=== PATIENT | female | born 1970 | race Caucasian/White ===

== ENCOUNTER 2022-11-26 18:17 | Inpatient (IN) | payer OTHER, MEDICAID ==
[~2022-11-26] VITALS: Ht 154.9 cm; Wt 80.1 kg
[2022-11-26 18:49] VITALS: BP_SYST 150
--- NOTE | 2022-11-26 20:31 | NUR ---
Patient to ER bed 5 to gown for evaluation. Side rails up. Report given to AMOS CHÁVEZ(REG).
--- NOTE | 2022-11-26 20:40 | NUR ---
ER Dr. BUSTOS at bedside examining patient.
--- NOTE | 2022-11-26 21:10 | NUR ---
PT IS AA&OX4. AFEBRILE. NAD. DENIES PAIN. NOTED R FOOT SWELLING AND R LOWER LEG EDEMA. ELEVATED MOLLY. R FOOT PLANTAR WOUND W/ NO BLEEDING NOTED. AMBULATORY. SAFE & HAZARD FREE ENVIRONMENT PROVIDED.
[2022-11-26 21:19] LABS: BASOPHILS # (AUTO) 0.1 K/uL (0.0-0.2); BASOPHILS % (AUTO) 0.6 % (0.0-2.0); EOSINOPHILS # (AUTO) 0.3 K/uL (0.0-0.4); EOSINOPHILS % (AUTO) 2.5 % (0.0-4.0); HEMATOCRIT 29.9 % (36-48); HEMOGLOBIN 9.7 g/dL (12.0-16.0); LYMPHOCYTES # (AUTO) 1.1 K/uL (1.0-5.5); LYMPHOCYTES % (AUTO) 9.7 % (20.5-51.5); MEAN CORPUSCULAR HEMOGLOBIN 28 pg (27-31); MEAN CORPUSCULAR HGB CONC 33 % (32-36); MEAN CORPUSCULAR VOLUME 87 fL (79.0-98.0); MONOCYTES # (AUTO) 0.6 K/uL (0.0-1.0); MONOCYTES % (AUTO) 5.3 % (1.7-9.3); NEUTROPHILS # (AUTO) 9.5 K/uL (1.8-7.7); NEUTROPHILS % (AUTO) 81.9 % (40.0-70.0); PLATELET COUNT (AUTO) 281 K/uL (130-430); RED BLOOD CELL COUNT(AUTO) 3.43 MIL/uL (4.2-6.2); RED CELL DISTRIBUTION WIDTH 13.9 % (9.0-15.0); WHITE BLOOD COUNT (AUTO) 11.6 K/uL (4.8-10.8)
[2022-11-26 21:30] LABS: CALCIUM 9.1 mg/dL (8.4-11.0); CREATININE 6.52 mg/dL (0.55-1.30)
[2022-11-26 21:34] LABS: ALBUMIN 2.9 g/dL (3.4-4.8); TOTAL BILIRUBIN 0.4 mg/dL (0.0-1.0)
[2022-11-26 21:58] LABS: ERYTHROCYTE SEDIMENTATION RATE 43 MM/HR (0-20)
[2022-11-26] MEDS ORDERED: VANCOMYCIN HCL 1,000 MG in NS 250 ML IV ONE (22:15)
[2022-11-26] MEDS ORDERED: PIPERACILLIN/TAZO 3.375 GM in NS 50 ML IV ONE (22:15)
[2022-11-26] MEDS ORDERED: PIPERACILLIN/TAZOBACTAM 3.375 GM/VIAL (ZOSYN) IV ONE (22:21)
[2022-11-26] MEDS ORDERED: VANCOMYCIN HCL 1000 MG/VIAL IV ONE (22:21)
--- NOTE | 2022-11-26 22:22 | NUR ---
Admit bed requested Patient will be admitted to care of [facility] Admitted to TELEMETY unit. Diagnosis : R FOOT CELLULITIS Inpatient :Yes Observation : No Orientation concerns or request close to nursing station : No Covid Status : PND On vent or bipap :NO Isolation requirements :NO Needs a sitter :NO From Home :Yes Requires Dialysis :No Med Rec Completed : PND
--- NOTE | 2022-11-26 23:02 | NUR ---
# 20 gauge angiocath placed to RAC. Use of asceptic technique. Opsite placed over site. Blood return noted. Flushed with 10 cc of normal saline. No evidence of infiltration noted. Patient tolerated well.
--- NOTE | 2022-11-26 23:06 | NUR ---
COVID SWAB BY KAREN YEPEZ & SENT TO LAB.
[2022-11-26] MEDS ORDERED: BUME1TAB8 PO (23:08)
[2022-11-26] MEDS ORDERED: AMLO2.5T2 PO (23:08)
[2022-11-26] MEDS ORDERED: GLIP2.5T3 PO (23:08)
--- NOTE | 2022-11-26 23:08 | NUR ---
Medication reconciliation completed with information provided by PATIENT. Any prior medication reconciliation on file was reviewed and corrected.
--- NOTE | 2022-11-27 00:12 | NUR ---
PT REQUESTED FOR SOMETHING TO CALM HER DOWN BEFORE GETTING MOVED TO THE TELE FLOOR. PT REQUESTED FOR XANAX 0.5MG SHE'S TAKEN IT BEFORE, PER PT. DR. OBRIEN MADE AWARE W/ NEW ORDERS NOTED & CARRIED OUT.
[2022-11-27] MEDS ORDERED: ALPRAZolam 0.25 MG TABLET PO ONE (00:15)
--- NOTE | 2022-11-27 00:33 | NUR ---
Patient will be admitted to care of [facility]. Admitted to TELE unit. Will go to room 128A. Belongings list completed. Complete and up to date summary report printed. SBAR report to be given at bedside TO KYLER DIAMOND with opportunity for questions.
--- NOTE | 2022-11-27 00:40 | NUR ---
ADMISSION NOTE Received patient from ER via gurney. Patient admitted with diagnosis of RIGHT FOOT CELLULITIS. Patient is awake, alert, oriented X 4. Patient oriented to hospital room, call light, toileting, pain management and safety-teach back done. Patient informed that their room number is 128B. Personal belongings checked and Belongings List documented. Call light within reach.
--- NOTE | 2022-11-27 05:03 | NUR ---
CONSULTATION PAGED/CALLED Reason for Consultation: ESRD Person Who was Notified:ANDREA Consulting Physician: NHI Manager Interventional Specialty: Ordering Physician: ADRIANNA Addendum: 11/27/22 at 0504 by Clair Lopez CNA DOCTOR HANSEN IS BUSINESS SYSTEMS ADMINISTRATOR
--- NOTE | 2022-11-27 07:29 | NUR ---
CLOSING NOTES Patient resting in bed - no s/s pain or distress noted. Respirations even and unlabored - head of bed elevated. IV site patent no s/s redness, infection, or infiltration. Bed locked and in lowest position. Call light within reach bed alarm on. at bedside.
[2022-11-27 08:00] VITALS: BP_SYST 167
[2022-11-27] MEDS ORDERED: ZOLPIDEM TARTRATE 5 MG TABLET PO PRN (08:00)
[2022-11-27] MEDS ORDERED: POTASSIUM CHLORIDE 20 MEQ TAB.PRT.SR PO PRN (08:00)
[2022-11-27] MEDS ORDERED: ONDANSETRON HCL 4 MG/2 ML VIAL IVP PRN (08:00)
[2022-11-27] MEDS ORDERED: MUPIROCIN 2% TOPICAL OINTMENT 22 GM NS PRN (08:00)
[2022-11-27] MEDS ORDERED: DOCUSATE SODIUM 100 MG CAPSULE PO PRN (08:00)
[2022-11-27] MEDS ORDERED: MORPHINE 2 MG/ML INJ. SYRINGE IVP PRN ×2 (08:00)
[2022-11-27] MEDS ORDERED: LORazepam 2 MG/ML VIAL IVP PRN (08:00)
[2022-11-27] MEDS ORDERED: ACETAMINOPHEN 325 MG TABLET PO PRN ×2 (08:00→08:15)
[2022-11-27] MEDS ORDERED: NALOXONE HCL 0.4 MG/ML AMP (NARCAN) IVP PRN ×2 (08:00)
[2022-11-27] MEDS ORDERED: MAGNESIUM SULFATE 50 ML IV PRN (08:00)
--- NOTE | 2022-11-27 08:00 | NUR ---
Start of shift Pt sitting up in bed eating her breakfast. IV in RAC intact and patent. LAV shunt intact. No SOB/resp distress or severe right foot pain/discomfort noted. Tele unit attached and intact at this time. Bed in low position and side rails raised. Pt ambulates to restroom with standby assist. Call light within reach.
--- NOTE | 2022-11-27 08:08 | NUR ---
CONSULTATION: REASON FOR CONSULT: R FOOT CELLULITIS CONSULTING PHYSICIAN: Ascencion JOHNSON ORDERED BY: Isaak RODAS SPOKE WITH MIRIAM [phone]
[2022-11-27] MEDS: amLODIPine BESYLATE 5 MG TABLET PO SCH (08:48)
[2022-11-27] MEDS: HEPARIN SODIUM,PORCINE 5,000 UNITS/ML VIAL SUBCUT SCH ×2 (08:54→21:24)
[2022-11-27] MEDS: BUMETANIDE 1 MG TABLET PO SCH ×2 (09:00→12:35)
[2022-11-27] MEDS ORDERED: cefTRIAXone 1 GM in D5W 50 ML IV SCH (09:00)
[2022-11-27] MEDS: cefTRIAXone 1 GM in D5W 50 ML IV SCH (09:46)
[2022-11-27] MEDS: INSULIN REGULAR, HUMAN 100 UNITS/ML, 3 ML VIAL (humuLIN R) SUBCUT PRN ×2 (11:31→21:27)
[2022-11-27 12:00] VITALS: BP_SYST 178
[2022-11-27] MEDS: metroNIDAZOLE 250 mg/NS 50 ML IV SCH ×2 (13:41→21:25)
--- NOTE | 2022-11-27 15:25 | NUR ---
Note Pt has been ambulating to restroom with standby assist and did self hygiene care. Pt's at bedside at this time. Dr Bowman (nephro) at bedside assessing pt and answering questions/concerns at this time. Call light within reach. No needs noted.
[2022-11-27 16:00] VITALS: BP_SYST 162
--- NOTE | 2022-11-27 18:50 | NUR ---
END OF SHIFT Pt having Hemodialysis at this time - started around 1600. Pt's at bedside at this time as well. No needs noted. Call light within reach. Bed in low position and side rails raised.
[2022-11-27 20:00] VITALS: BP_SYST 150
[2022-11-27] MEDS ORDERED: MELATONIN 3 MG TABLET PO PRN (21:00)
[2022-11-28] VITALS: BP_SYST 150
[2022-11-28 01:24] VITALS: BP_SYST 146
[2022-11-28 04:00] VITALS: BP_SYST 144
[2022-11-28 06:20] LABS: BASOPHILS # (AUTO) 0.1 K/uL (0.0-0.2); BASOPHILS % (AUTO) 0.7 % (0.0-2.0); EOSINOPHILS # (AUTO) 0.2 K/uL (0.0-0.4); EOSINOPHILS % (AUTO) 3.1 % (0.0-4.0); HEMATOCRIT 30.4 % (36-48); HEMOGLOBIN 9.9 g/dL (12.0-16.0); LYMPHOCYTES # (AUTO) 1.2 K/uL (1.0-5.5); LYMPHOCYTES % (AUTO) 16.5 % (20.5-51.5); MEAN CORPUSCULAR HEMOGLOBIN 28 pg (27-31); MEAN CORPUSCULAR HGB CONC 33 % (32-36); MEAN CORPUSCULAR VOLUME 88 fL (79.0-98.0); MONOCYTES # (AUTO) 0.6 K/uL (0.0-1.0); MONOCYTES % (AUTO) 7.7 % (1.7-9.3); NEUTROPHILS # (AUTO) 5.4 K/uL (1.8-7.7); PLATELET COUNT (AUTO) 259 K/uL (130-430); RED BLOOD CELL COUNT(AUTO) 3.47 MIL/uL (4.2-6.2); RED CELL DISTRIBUTION WIDTH 14.1 % (9.0-15.0); WHITE BLOOD COUNT (AUTO) 7.5 K/uL (4.8-10.8)
[2022-11-28] MEDS: metroNIDAZOLE 250 mg/NS 50 ML IV SCH (06:38)
[2022-11-28 06:48] LABS: CALCIUM 8.5 mg/dL (8.4-11.0); CREATININE 4.49 mg/dL (0.55-1.30)
--- NOTE | 2022-11-28 07:30 | NUR ---
Opening Notes Patient laying in bed, resting when I walked in to see her. A/O x 4, Indonesian speaking. Patient Breathing even and unlabored on RA. No pain, no distress, no SOB. Patient is on a regular diet. Patient has LH 22g. Patient has BRP with assistants. Bed is locked in lowest position. Call light within reach, all needs met, will continue with plan of care. Addendum: 11/28/22 at 0921 by Arnold Espino LVN Patient is on CCHO renal diet
[2022-11-28 07:35] VITALS: BP_SYST 151
--- NOTE | 2022-11-28 08:05 | NUR ---
WOUND EVALUATION: Late entry for 11/27/22 secondary to patient care. Wound Consult received from Dr. Chavarria. Thank you, Dr. Chavarria, for the consult. Patient received in a [place] Bed, awake, alert, and oriented. Patient is able to turn independently. Josh Score is a 19. Past Medical History:diabetes, hypertension, end-stage renal disease with dialysis. Recent Labs: WBC 7.5, RBC 3.47, Hgb 9.9, Hct 30.4, Plt 259, BUN 42, creatinine 4.49, glucose 169, HgbA1c 8.1, calcium 8.5, magnesium 2.2, albumin 2.9. Microbiology: no growth from blood cultures, MRSA pending. Intrinsic factors that delay wound healing: diabetes, hypertension, end-stage renal disease with dialysis. Extrinsic factors that delay wound healing: decreased mobility, discomfort on ambulation. Per Dr. Andujar, X-Ray of right foot on 11/26/2022 revealed vascular atherosclerotic calcification. Wound Assessment: 1. Right Foot Plantar Surface, Between 2nd to 3rd Metatarsal Vascular atherosclerotic calcification, present on admission. Wound bed is 80% black and 20% brown hardened tissue. No odor, no drainage. Edith-wound intact. Measures 2 cm x 2 cm. Recommend: Keep wound dry. Cover with foam dressing. Perform wound care daily, and as needed for dressing soiling or dislodgement. 2. Right Foot Edema with erythema on ventral surface of foot from malleolus to border of proximal phalanx, present on admission. Skin intact, tender to touch. No odor, no drainage. Recommend: Apply moisturizer avoiding wound. Elevate extremity and offload heel. Also recommend: Remind patient to reposition every 2 hours with pillow support and off-load pressure areas with pillows for pressure re-distribution. Offload, elevate and float bilateral heels with pillows. Perform skin care and monitor skin integrity Q shift. Use moisture barrier cream on buttocks and other moisture susceptible areas QID and as needed for soiling.
[2022-11-28] MEDS: amLODIPine BESYLATE 5 MG TABLET PO SCH (08:35)
[2022-11-28] MEDS: BUMETANIDE 1 MG TABLET PO SCH (08:36)
[2022-11-28] MEDS: HEPARIN SODIUM,PORCINE 5,000 UNITS/ML VIAL SUBCUT SCH (08:51)
[2022-11-28] MEDS ORDERED: AMOX-423 PO (08:58)
[2022-11-28] MEDS: cefTRIAXone 1 GM in D5W 50 ML IV SCH (09:38)
[2022-11-28 10:32] VITALS: BP_SYST 151
--- NOTE | 2022-11-28 11:32 | NUR ---
CM: Discussed dc plan with pt, HH for wound care, the pt does not want HH visiting . Said she is able to take care of the wound which is delayed healing, dry scab, no order, no drainage. Wound care instruction per wound care nurse upon discharge.
[2022-11-28] MEDS: INSULIN REGULAR, HUMAN 100 UNITS/ML, 3 ML VIAL (humuLIN R) SUBCUT PRN (11:51)
--- NOTE | 2022-11-28 12:25 | NUR ---
Discharge Patient discharged home, patient is stab, no distress no pain or SOB. Wheeled her to the front where she left with family in their private vehicle.
--- NOTE | 2022-11-29 09:21 | NUR ---
PT PACKET SENT TO [facility] PHONE#[phone]
--- NOTE | 2022-12-04 13:07 | NUR ---
I received a call from [facility]-they have not been able to reach the patient, they will close the case at this time-unable to contact patient.
== END 2022-11-28 12:25 | disposition home health service (06) | DRG 604 ==
LOC: SED 18:17 → STU 22:12
PROVIDERS: ADMIT General Practice; ATTEND General Practice
PROC: 5A1D70Z Performance of Urinary Filtration, Intermittent, Less than 6 Hours Per Day (ICD-10-PCS; principal; 2022-11-27)
DX: S91.301A Unspecified open wound, right foot, initial encounter (principal); N17.0 Acute kidney failure with tubular necrosis; N18.6 End stage renal disease; L03.115 Cellulitis of right lower limb; E44.0 Moderate protein-calorie malnutrition; I12.0 Hypertensive chronic kidney disease with stage 5 chronic kidney disease or end stage renal disease; E87.1 Hypo-osmolality and hyponatremia; Z99.2 Dependence on renal dialysis; Z20.822 Contact with and (suspected) exposure to COVID-19; D63.1 Anemia in chronic kidney disease; E11.22 Type 2 diabetes mellitus with diabetic chronic kidney disease; L84 Corns and callosities; X58.XXXA Exposure to other specified factors, initial encounter; Y93.89 Activity, other specified; Y92.89 Other specified places as the place of occurrence of the external cause; Y99.8 Other external cause status; Z68.33 Body mass index [BMI] 33.0-33.9, adult
CPT/HCPCS: 36415; 80048; 80053; 83037; 83735; 85025; 85651-TC; 86140; 87040; 87081; 90935; 96361; 96365; 96367; 96372; 99285; G0378; J0696; J1644; J2543; J3370; J3490; J7060